=== PATIENT | male | born 1975 | race Caucasian/White ===

== ENCOUNTER 2019-12-04 08:35 | Emergency (ER) | payer OTHER, SELFPAY ==
[2019-12-04 08:41] VITALS: BP 146/93; PULSE 87; RESP 14; TEMP 36.6; O2SAT 98
[2019-12-04] MEDS: CLINDAMYCIN HCL 150 MG CAP 450 MG PO (09:28)
[2019-12-04] MEDS: ONDANSETRON HCL ODT 4 MG TABLET PO (09:28)
[2019-12-04] MEDS: HYDROMORPHONE HCL 1 MG/ML INJ 0.5 MG IM (09:31)
--- NOTE | 2019-12-04 10:15 | ED.DENTAL ---
HPI - Dental/Oral General Chief complaint: Dental/Oral Stated complaint: dental complaint Time Seen by Provider: 12/04/19 08:57 Source: patient Mode of arrival: ambulatory Limitations: no limitations History of Present Illness HPI Narrative: This patient is a 44 year old male who presents with complaint of dental pain. He states he has had problems with his teeth for a long time but last night his pain worsened. He states his tooth broke off left upper molar while eating tough meat yesterday. He took 2 - 800 mg ibuprofen this morning with out relief. He states his pain is so bad is he nauseated. No vomiting or fever. MD Complaint: tooth pain Location: Tooth # (15, 18) Onset (ago): day(s) (1) Related Data Home Medications Medication Instructions Recorded Confirmed atorvastatin 10 mg PO DAILY 12/04/19 cyclobenzaprine 10 mg PO HS 12/04/19 ibuprofen 1,600 mg PO BID 12/04/19 insulin glargine [Lantus U-100 30 unit SUBCUT HS 12/04/19 Insulin] lisinopril 5 mg PO DAILY 12/04/19 Allergies Allergy/AdvReac Type Severity Reaction Status Date / Time oxybutynin Allergy Unknown Verified 12/04/19 08:48 Penicillins Allergy Rash Verified 12/04/19 08:48 baclofen AdvReac Other Verified 12/04/19 08:48 Review of Systems Review of Systems: All systems reviewed & are unremarkable except as noted in HPI and below Constitutional: Constitutional: Denies chills and Denies fever(s) ENT: Reports dental pain Gastrointestinal: Gastrointestinal: Denies abdominal pain, Reports nausea and Denies vomiting [facility] Past Medical History Medical History (Updated 12/04/19 @ 10:20 by Subha Escobar MD) Diabetes mellitus Social History Social History (Updated 12/04/19 @ 10:15 by Subha Escobar MD) Smoking packs per day: 1 Smoking cigarettes per day: 20.0 Smoking status: Current every day smoker Exam Const: General: no acute distress and alert Orientation/consciousness: patient oriented x3 HENMT: Head: normocephalic and atraumatic Ears: hearing grossly normal bilaterally and TM's normal bilaterally General nose exam: No nasal polyps present Face and sinus: sinuses nontender and face symmetric Teeth and gingiva: abnormal tooth and associated gingiva (multiple dental caries upper 15 with inflamed gingiva) and poor dentition Throat: posterior oropharynx normal, tonsils normal and uvula midline Eyes: EOM: EOMs intact bilaterally Neck: Neck: normal visual inspection and no lymphadenopathy Chest: Chest palpation & inspection: normal inspection of the chest Resp: Effort & Inspection: normal respiratory effort and no retractions Auscultation: clear to auscultation bilaterally Cardio: Rate: regular rate Rhythm: regular rhythm Heart sounds: no murmurs GI: Auscultation: normal bowel sounds Course Vital Signs Vital signs: Vital Signs Temperature 97.8 F 12/04/19 08:41 Pulse Rate 87 12/04/19 08:41 Respiratory Rate 14 12/04/19 08:41 Blood Pressure 146/93 H 12/04/19 08:41 Pulse Oximetry 98 12/04/19 08:41 Temperature 97.8 F 12/04/19 08:41 Pulse Rate 87 12/04/19 08:41 Respiratory Rate 14 12/04/19 08:41 Blood Pressure 146/93 H 12/04/19 08:41 Pulse Oximetry 98 12/04/19 08:41 MDM - Dental/Oral Differential Diagnosis Differential diagnosis: Likely gingival abscess, dental caries, toothache, dental abscess and fracture of tooth Discharge Plan Discharge Clinical Impression: Dental abscess, Dental caries Patient Disposition: Home, Self-Care Condition: Stable Instructions: Antibiotic Form, Dental Abscess (ED), Toothache (ED) Additional Instructions: Try calling Dr. Valeriano Grey at [facility] at [phone] for treatment of your teeth. Take antibiotics as prescribed. Prescriptions: New ondansetron HCl [Zofran] 4 mg tablet 4 mg PO Q6H PRN (Reason: nausea and vomiting) Qty: 10 RF: 0 clindamycin HCl 300 mg capsule 300 mg PO Q6H 10 Days Q
== END 2019-12-04 10:36 | disposition home or self-care (01) ==
PROVIDERS: Emergency Provider General Practice
DX: K08.89 Other specified disorders of teeth and supporting structures (principal); F17.210 Nicotine dependence, cigarettes, uncomplicated; Z79.4 Long term (current) use of insulin; E11.9 Type 2 diabetes mellitus without complications
CPT/HCPCS: 96372; 99283; A9270; J1170

== ENCOUNTER 2019-12-14 22:23 | Emergency (ER) | payer OTHER, SELFPAY ==
--- NOTE | ~2019-12-14 | XR_ITS ---
EXAMINATION: XR chest 1V portable DATE: 12/15/2019 01:28 INDICATION: Shortness of breath. Cough. TECHNIQUE: frontal and lateral views of the chest were obtained. COMPARISON: None FINDINGS: The lungs are clear with no focal airspace opacities, pulmonary edema, pleural effusion or pneumothor ax. The cardiomediastinal silhouette is normal. Visualized bones and soft tissues are unremarkable. IMPRESSION: 1. No acute cardiopulmonary disease. Reviewed, dictated and finalized at location A.
[2019-12-14 22:44] VITALS: BP 115/85; PULSE 84; RESP 18; TEMP 36.6; O2SAT 98
[2019-12-15 00:45] VITALS: BP 145/97; PULSE 76; RESP 15; TEMP 36.9; O2SAT 100
--- NOTE | 2019-12-15 00:45 | ECG_ITS ---
Measurements Intervals [place] Rate: 75 P: 66 PA: 175 QRS: 58 QRSD: 97 T: 49 QT: 350 QTc: 391 Interpretive Statements SINUS RHYTHM BASELINE ARTIFACT- I, II, AVR, AVL, AVF NORMAL ECG Electronically Signed On 12-15-2019 6:52:33 CDT by Jeff Singleton D.O.
[2019-12-15 01:01] VITALS: PULSE 77; O2SAT 98
[2019-12-15 01:17] LABS: Glucose Point of Care 247 (65-105)
[2019-12-15 01:19] LABS: Basophils Absolute Auto 0.1 K/mm3 (0.0-0.1); Basophils Percent Auto 0.7 % (0.2-1.2); Eosinophils Absolute Auto 0.3 K/mm3 (0-0.3); Eosinophils Percent Auto 2.6 % (0-4.4); Hematocrit 50.6 % (42.0-52.0); Hemoglobin 17.3 g/dL (14.0-18.0); Immature Granulocyte Absolute 0.04 K/mm3 (0.00-0.031); Immature Granulocyte Percent A 0.3 % (0-0.5); Lymphocytes Absolute Auto 3.62 K/mm3 (0.9-3.2); Lymphocytes Percent Auto 27.6 % (18.3-44.2); Mean Corpuscular HGB Conc 34.2 g/dl (32-36); Mean Corpuscular Hemoglobin 30.1 pg (26-34); Mean Corpuscular Volume 88.2 fl (80-100); Mean Platelet Volume 10.3 fl (7.4-10.4); Monocytes Absolute Auto 0.9 K/mm3 (0.1-0.6); Monocytes Percent Auto 6.8 % (2.6-8.5); Neutrophils Absolute Auto 8.1 K/mm3 (1.3-6.7); Platelet Count Result 278 k/mm3 (150-375); Red Blood Count 5.74 M/mm3 (4.6-6.20); White Blood Count 13.1 K/mm3 (4.5-10.0)
[2019-12-15 01:33] LABS: Alanine Aminotransferase 45 U/L (4-50); Albumin Level 4.4 g/dL (3.5-5.1); Alkaline Phosphatase 108 U/L (38-126); Aspartate Amino Transferase 32 U/L (17-59); Bilirubin,Total 0.3 mg/dL (0.2-1.3); Blood Urea Nitrogen 12 mg/dL (9-20); Carbon Dioxide 32 mmol/L (22-30); Chloride 100 mmol/L (98-107); Estimated CRCL calculation 98 ml/min; Estimated Glomerular Filt Rate > 60; Glucose 275 mg/dL (75-110); Lactic Acid Reflex 1.4 mmol/L (0.7-2.1); Potassium 4.3 mmol/L (3.4-5.0); Sodium 137 mmol/L (137-145)
[2019-12-15] MEDS: SODIUM CHLORIDE 0.9% IV 1,000 ML 999 ML IV CONT (01:59)
[2019-12-15 02:00] VITALS: BP 122/88; PULSE 73; RESP 14; O2SAT 98
--- NOTE | 2019-12-15 02:58 | ED.GENADULT ---
HPI - General Adult General Chief complaint: Unspecified Stated complaint: COVID exposure , fever/cough Time Seen by Provider: 12/15/19 01:22 History of Present Illness HPI narrative: Patient is a 44-year-old male who presents ER with multiple issues. He reports 3 days ago he began feeling fatigued and having diarrhea. He also reports intermittent cough and shortness of breath. No overt fevers or chills. He was informed today that 3 of his coworkers tested positive for COVID-19 which has him worried. He reports blood sugars have been poorly controlled and running in the mid 200s. He did not take his evening insulin however prior to arrival here. Denies any aggravating or alleviating factors for symptoms. Related Data Home Medications Medication Instructions Recorded Confirmed atorvastatin 10 mg PO DAILY 12/04/19 cyclobenzaprine 10 mg PO HS 12/04/19 ibuprofen 1,600 mg PO BID 12/04/19 insulin glargine [Lantus U-100 30 unit SUBCUT HS 12/04/19 Insulin] lisinopril 5 mg PO DAILY 12/04/19 Allergies Allergy/AdvReac Type Severity Reaction Status Date / Time oxybutynin Allergy Unknown Verified 12/14/19 22:47 Penicillins Allergy Rash Verified 12/14/19 22:47 baclofen AdvReac Other Verified 12/14/19 22:47 Review of Systems Review of Systems: All systems reviewed & are unremarkable except as noted in HPI and below Constitutional: Constitutional: Denies chills, Reports fatigue and Denies fever(s) ENT: Denies nasal congestion and Denies sore throat Cardiovascular: Cardiovascular: Denies chest pain and Denies radiating jaw, neck or arm pain Respiratory: Respiratory: Reports cough, Reports dyspnea and Denies wheezing Gastrointestinal: Gastrointestinal: Denies abdominal pain, Reports diarrhea, Denies nausea and Denies vomiting PMFSH Past Medical History Medical History Diabetes mellitus Social History Social History Smoking packs per day: 1 Smoking cigarettes per day: 20.0 Smoking status: Current every day smoker Gender identity (if verbalized by the patient): Male Exam Narrative: Exam Narrative: GENERAL: Well-appearing, well-nourished, and in no acute distress. HEAD: Normocephalic, atraumatic. ENT: Mucous membranes moist. CHEST: Clear to auscultation. No respiratory distress. HEART: Regular rate and rhythm. Normal peripheral pulses. ABDOMEN: Soft, nontender, nondistended. EXTREMITIES: Normal range of motion. No edema. SKIN: Warm, dry, no rash. NEURO: Alert and oriented x3. Course Course Emergency Course: Unremarkable evaluation. Patient was swab for COVID-19 has been recommended he stay at home until he receives his results. Vital Signs Vital signs: Vital Signs Temperature 98 F 12/14/19 22:44 Pulse Rate 84 12/14/19 22:44 Respiratory Rate 18 12/14/19 22:44 Blood Pressure 115/85 12/14/19 22:44 Pulse Oximetry 98 12/14/19 22:44 Temperature 98.4 F 12/15/19 00:45 Pulse Rate 77 12/15/19 01:01 Respiratory Rate 15 12/15/19 00:45 Blood Pressure 145/97 H 12/15/19 00:45 Pulse Oximetry 98 12/15/19 01:01 Medical Decision Making Vital Signs Vital Signs: Vital Signs Temperature 98 F 12/14/19 22:44 Pulse Rate 84 12/14/19 22:44 Respiratory Rate 18 12/14/19 22:44 Blood Pressure 115/85 12/14/19 22:44 Pulse Oximetry 98 12/14/19 22:44 Temperature 98.4 F 12/15/19 00:45 Pulse Rate 77 12/15/19 01:01 Respiratory Rate 15 12/15/19 00:45 Blood Pressure 145/97 H 12/15/19 00:45 Pulse Oximetry 98 12/15/19 01:01 Lab Data Result diagrams: 12/15/19 01:08 12/15/19 01:08 Labs: Lab Results 12/15/19 12/15/19 12/15/19 Range/Units 01:08 01:08 01:08 WBC 13.1 H (4.5-10.0) K/mm3 RBC 5.74 (4.6-6.20) M/mm3 Hgb 17.3 (14.0-18.0) g/dL Hct 50.6 (42.0-52.0) % MCV 88.2 (80-100)
[2019-12-15 03:39] VITALS: BP 125/89; PULSE 67; RESP 16; TEMP 36.7; O2SAT 100
[2019-12-15 14:44] LABS: SARS-CoV-2 RNA PCR Negative
== END 2019-12-15 03:41 | disposition home or self-care (01) ==
PROVIDERS: Emergency Provider Emergency Medicine
DX: B34.9 Viral infection, unspecified (principal); Z20.828 Contact with and (suspected) exposure to other viral communicable diseases; E11.9 Type 2 diabetes mellitus without complications; Z79.4 Long term (current) use of insulin; F17.210 Nicotine dependence, cigarettes, uncomplicated
CPT/HCPCS: 36415; 71045; 80053; 82948; 83605; 85025; 87635; 93005; 96360; 99283; C9803; J7030; U0003

== ENCOUNTER 2020-05-29 00:35 | Emergency (ER) | payer OTHER, SELFPAY ==
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
[2020-05-29 00:46] VITALS: BP 129/91; PULSE 110; RESP 20; TEMP 36.6; O2SAT 96
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
[2020-05-29 00:49] VITALS: BP 129/91; PULSE 110; RESP 20; TEMP 36.6; O2SAT 96
[2020-05-29 03:00] VITALS: BP 124/89; PULSE 91; RESP 20; O2SAT 97
== END 2020-05-29 03:20 | disposition home or self-care (01) ==
PROVIDERS: Emergency Provider Emergency Medicine
DX: S02.2XXA Fracture of nasal bones, initial encounter for closed fracture (principal); Z79.4 Long term (current) use of insulin; E11.9 Type 2 diabetes mellitus without complications; Y04.2XXA Assault by strike against or bumped into by another person, initial encounter
CPT/HCPCS: 70486; 99284